=== PATIENT | female | born 1985 | race Caucasian/White ===

== ENCOUNTER 2016-08-18 17:22 | Emergency (ER) | payer SELFPAY ==
[2016-08-18 19:40] VITALS: BP 134/85
--- NOTE | 2016-08-18 19:53 | UC ---
Dizzy HPI HPI Summary: patient has hx of anxiety, currently not taking any medication for it. she is followed by mental health clinic and has an appointment tomorrow. last night she didnt feel right, thought she was too anxious so she took a bath, when she got out she was dizzy. today dizzyness continues and she is anxious something is wrong. she did start her menses today. - History Of Current Complaint Chief Complaint: UCDizziness Stated Complaint: DIZZYNESS Time Seen by Provider: 08/18/16 19:39 Hx Obtained From: Patient Hx Last Menstrual Period: TODAY ONSET ?: No Onset/Duration: Sudden Onset, Lasting Days Timing: Hours Severity Initially: Mild Severity Currently: Mild Pain Intensity: 0 Pain Scale Used: 0-10 Numeric Character: Dizzy Aggravating Factor(s): Nothing Alleviating Factor(s): Nothing Associated Signs And Symptoms: Positive: Palpitations - Risk Factors Cardiac Risk Factors: Negative CVA Risk Factor: Negative - Allergies/Home Medications Allergies/Adverse Reactions: Allergies Allergy/AdvReac Type Severity Reaction Status Date / Time seasonal Allergy Congestion Uncoded 08/18/16 19:28 Home Medications: Home Medications NK [No Home Medications Reported] 08/18/16 [History Confirmed 08/18/16] PMH/Surg Hx/FS Hx/Imm Hx Previously Healthy: Yes Endocrine History Of: Reports: Thyroid Disease - hypo Denies: Diabetes, Hyperthyroidism, Hypothyroidism, Dyslipidemia Cardiovascular History Of: Denies: Cardiac Disorders, Hypertension, Pacemaker/ICD, Myocardial Infarction , Congestive Heart Failure, Atrial Fibrillation, Deep Vein Thrombosis, Bleeding Disorders Respiratory History Of: Denies: COPD, Asthma, Bronchitis, Pneumonia, Pulmonary Embolism GI/ History Of: Denies: Gastroesophageal Reflux, Ulcer, Gastrointestinal Bleed, Gall Bladder Disease, Kidney Stones, Diverticulitis, Renal Disease, Urosepsis Neurological History Of: Denies: TIA, CVA, Dementia, Seizures, Migraine Psychological History Of: Reports: Anxiety, Depression, Bipolar Disorder Denies: Schizophrenia, Post Traumatic Stress Disorder Cancer History Of: Denies: Lung Cancer, Colorectal Cancer, Breast Cancer, Prostate Cancer, Cervical Cancer Other History Of: Negative For: HIV, Hepatitis B, Hepatitis C, Anticoagulant Therapy - Surgical History Surgical History: None - Family History Known Family History: Positive: None Negative: Cardiac Disease, Hypertension, Diabetes - Social History Alcohol Use: None Substance Use Type: None Smoking Status (MU): Never Smoked Tobacco Have You Smoked in the Last Year: No Review of Systems Constitutional: Negative Skin: Negative Eyes: Negative ENT: Negative Respiratory: Negative Cardiovascular: Palpitations Gastrointestinal: Negative Genitourinary: Negative Motor: Negative Neurovascular: Negative Musculoskeletal: Negative Psychological: Anxious All Other Systems Reviewed And Are Negative: Yes Physical Exam Triage Information Reviewed: Yes Appearance: Well-Appearing, No Pain Distress, Well-Nourished, Other: - does appear worried Vital Signs: Initial Vital Signs Temp 98 F 08/18/16 19:28 Pulse 80 08/18/16 19:28 Resp 20 08/18/16 19:28 BP 134/85 08/18/16 19:28 Pulse Ox 100 08/18/16 19:28 Vital Signs Reviewed: Yes Eye Exam: Normal Eyes: Positive: Conjunctiva Clear ENT Exam: Normal ENT: Positive: Hearing grossly normal, Pharynx normal, TMs normal Dental Exam: Normal Neck exam: Normal Neck: Positive: Supple, Nontender, No Lymphadenopathy Respiratory Exam: Normal Respiratory: Positive: Chest non-tender, Lungs clear, Normal breath sounds, No respiratory distress Cardiovascular Exam: Normal - s1s2, no murmur, pedal and radial pulses reg. Cardiovascular: Positive: RRR, No Murmur, Pulses Normal Abdominal Exam: Normal Abdomen Description: Positive: Nontender, No Organomegaly, Soft Bowel Sounds: Positive: Present Musculoskeletal Exam: Normal Musculoskeletal: Positive: Strength Intact, ROM Intact, No Edema Neurological Exam: Normal Neurological: Positive: Alert, Muscle Tone Normal Psychological: Positive: Other: - admits to being anxious currently, answers question appropriately Skin Exam: Normal Dizzy Course/Dx - Course Course Of Treatment: hx obtained, exam performed EKG performed NSR, physical exam is benign. talked with patient about atarax for tonight, she is willing to take it and follow up at mental health clinic tomorrow at her scheduled appointment. - Differential Dx/Diagnosis Differential Diagnosis/HQI/PQRI: Anxiety, Vasovagal Reaction Provider Diagnoses: anxiety. dizzy Discharge - Discharge Plan Condition: Stable Disposition: HOME Patient Education Materials: Lightheadedness (ED), Anxiety (ED)
[2016-08-18] MEDS ORDERED: hydrOXYzine HCL TAB* 50 MG PO ONE (19:55)
[2016-08-18] MEDS ORDERED: hydrOXYzine HCL TAB* 25 MG PO ONE (20:01)
== END 2016-08-18 20:12 | disposition home or self-care (01) ==
LOC: UCCORT 17:22
DX: F41.9 Anxiety disorder, unspecified (principal); R42 Dizziness and giddiness
CPT/HCPCS: 93005; 99212; A9270-GY; G0463

== ENCOUNTER 2017-03-15 14:42 | Emergency (ER) | payer OTHER ==
[2017-03-15 15:19] VITALS: BP 124/68
--- NOTE | 2017-03-15 15:21 | UC ---
Complaint Female HPI - HPI Summary HPI Summary: 31 y/o female presents to the urgent care c/o placing a tampon this morning. Now she can't recall if she has remove it earlier or not. She can't find the string. She is very concern. LMP; 02/04/2017.Pt is . She was with mild spotting yesterday, she called her OBGYN and he told her it was normal for spotting at the beginning of can be normal. Pt just wants to make sure she doesn't have any tampon. Pt denies fever, pelvic pain, chest pain, SOB, N/V/D. - History Of Current Complaint Chief Complaint: UCGU Stated Complaint: PERSONAL Time Seen by Provider: 03/15/17 15:21 Hx Obtained From: Patient Hx Last Menstrual Period: 02/04/2017 ?: Yes Onset/Duration: Sudden Onset, Lasting Hours, Still Present Timing: Constant Severity Currently: None Pain Intensity: 0 Pain Scale Used: 0-10 Numeric Character: Not Applicable Aggravating Factor(s): Nothing Alleviating Factor(s): Nothing Associated Signs And Symptoms: Positive: Negative Related Hx: - Risk Factors Ectopic Risk Factor: Negative - Allergies/Home Medications Allergies/Adverse Reactions: Allergies Allergy/AdvReac Type Severity Reaction Status Date / Time seasonal Allergy Congestion Uncoded 03/15/17 15:14 Home Medications: Home Medications Vitamin TAB* 1 tab PO DAILY 03/15/17 [History Confirmed 03/15/17] PMH/Surg Hx/FS Hx/Imm Hx Previously Healthy: Yes Endocrine History: Hyperthyroidism Respiratory History: Asthma Other History Of: Negative For: HIV, Hepatitis B, Hepatitis C, Anticoagulant Therapy - Surgical History Surgical History: None - Family History Known Family History: Positive: None - Pt denies any FMHX Negative: Cardiac Disease, Hypertension, Diabetes - Social History Occupation: Employed Full-time Lives: With Family Alcohol Use: None Substance Use Type: None Smoking Status (MU): Never Smoked Tobacco Have You Smoked in the Last Year: No Review of Systems Constitutional: Negative Skin: Negative Eyes: Negative ENT: Negative Respiratory: Negative Cardiovascular: Negative Gastrointestinal: Negative Genitourinary: Other - Pt thinks she left her tampon inside, but she is not sure Motor: Negative Neurovascular: Negative Musculoskeletal: Negative Neurological: Negative Psychological: Negative All Other Systems Reviewed And Are Negative: Yes Physical Exam Triage Information Reviewed: Yes Appearance: Well-Appearing, No Pain Distress, Well-Nourished, Obese Vital Signs: Initial Vital Signs Temp 98.4 F 03/15/17 15:15 Pulse 105 03/15/17 15:15 Resp 18 03/15/17 15:15 BP 124/68 03/15/17 15:15 Pulse Ox 99 03/15/17 15:15 Vital Signs Reviewed: Yes Eye Exam: Normal Eyes: Positive: Conjunctiva Clear - PERRLA, EOMI ENT Exam: Normal ENT: Positive: Normal ENT inspection, Hearing grossly normal, Pharynx normal, TMs normal Dental Exam: Normal Neck exam: Normal Neck: Positive: Supple, Nontender, No Lymphadenopathy Respiratory Exam: Normal Respiratory: Positive: Chest non-tender, Lungs clear, Normal breath sounds Cardiovascular Exam: Normal Cardiovascular: Positive: RRR, No Murmur, Pulses Normal Abdominal Exam: Normal Abdomen Description: Positive: Nontender, No Organomegaly, Soft. Negative: CVA Tenderness (R), CVA Tenderness (L) Bowel Sounds: Positive: Present, Absent Musculoskeletal Exam: Normal Musculoskeletal: Positive: Strength Intact, ROM Intact, No Edema Neurological Exam: Normal Psychological Exam: Normal Skin Exam: Normal - Genitalia: Nurse Irma assisted me on Pelvic Exam.Inspection reveals normal distribution of pubic hair. Clitoris and labia are w/o lesions. Internal examination with speculum reveals normal vaginal wall , no foreign body or tampon observed. The cervical os is well visualized. No lesions or discharges are noted. Uterus and ovaries are nontender. Complaint Female Dx - Course Course Of Treatment: 31 y/o female presents to the urgent care c/o placing a tampon this morning. Now she can't recall if she has remove it earlier or not. She can't find the string. She is very concern. LMP; 02/04/2017.Pt is . She was with mild spotting yesterday, she called her OBGYN and he told her it was normal for spotting at the beginning of can be normal. Pt just wants to make sure she doesn't have any tampon. Pt denies fever , pelvic pain, chest pain, SOB, N/V/D. Hx obtained. No foreing body found in the vagina. No vaginal bleeding. Pevic exam: WNL. Pt advised that if spotting returns or she develops pelvic pain or fever, she should f/u with her OBGYN or go immediately to the ER for further treatment. Pt understood and agreed and left the clinic ambulating. - Differential Dx/Diagnosis Differential Diagnosis/HQI/PQRI: Cervicitis, , Sexually Transmitted Disease, Other - foreign body Provider Diagnoses: 1-Normal . 2-Examination of possible retained foreign body in the vagina Discharge - Discharge Plan Condition: Stable Disposition: HOME Patient Education Materials: First Trimester Vaginal Bleed (ED) Referrals: Nimco Villeda MD [Primary Care Provider] - 3 Days Additional Instructions: 1- No tampon was seen or vaginal spotting observed . Please f/u with your OBGYN if you develop increase spotting, pelvic pain, or fever for further management
== END 2017-03-15 15:49 | disposition home or self-care (01) ==
LOC: UCCORT 14:42
DX: Z34.91 Encounter for supervision of normal pregnancy, unspecified, first trimester (principal)
CPT/HCPCS: 99212; G0463

== ENCOUNTER 2017-03-26 12:17 | Emergency (ER) | payer OTHER ==
[2017-03-26 13:00] VITALS: BP 116/72
--- NOTE | 2017-03-26 13:03 | UC ---
UC General HPI - HPI Summary HPI Summary: nausea for about a week. she is 7 weeks with and she has had hyperemesis requiring iv hydration wth the past pregnancies. she denies pain, fever, bleeding, diarrhea. No prior abd surgeries. - History of Current Complaint Chief Complaint: UCGI Stated Complaint: NAUSEA Time Seen by Provider: 03/26/17 12:53 Hx Obtained From: Patient Hx Last Menstrual Period: 02/04/2017 Onset/Duration: Gradual Onset Timing: Constant Onset Severity: Mild Current Severity: Mild Associated Signs & Symptoms: Positive: Nausea. Negative: Fever, Hematemesis, Melena - Allergy/Home Medications Allergies/Adverse Reactions: Allergies Allergy/AdvReac Type Severity Reaction Status Date / Time seasonal Allergy Congestion Uncoded 03/26/17 12:55 PMH/Surg Hx/FS Hx/Imm Hx Previously Healthy: Yes Other History Of: Negative For: HIV, Hepatitis B, Hepatitis C, Anticoagulant Therapy - Surgical History Surgical History: None - Family History Known Family History: Positive: None - Pt denies any FMHX Negative: Cardiac Disease, Hypertension, Diabetes - Social History Lives: With Family Alcohol Use: None Substance Use Type: None Smoking Status (MU): Never Smoked Tobacco Have You Smoked in the Last Year: No Review of Systems Gastrointestinal: Nausea All Other Systems Reviewed And Are Negative: Yes Physical Exam Triage Information Reviewed: Yes Appearance: Well-Appearing, No Pain Distress, Well-Nourished Vital Signs Reviewed: Yes Eye Exam: Normal ENT Exam: Normal Neck exam: Normal Respiratory Exam: Normal Cardiovascular Exam: Normal Abdominal Exam: Normal Musculoskeletal Exam: Normal Neurological Exam: Normal Psychological Exam: Normal Skin Exam: Normal Course/Dx - Differential Dx - Multi-Symptom Provider Diagnoses: nausea during Discharge - Discharge Plan Condition: Good Disposition: HOME Prescriptions: Metoclopramide TAB* [Reglan TAB*] 10 mg PO Q8H #30 tab Patient Education Materials: Hyperemesis Gravidarum (ED) Referrals: Nimco Villeda MD [Primary Care Provider] - If Needed
== END 2017-03-26 13:11 | disposition home or self-care (01) ==
LOC: UCCORT 12:17
DX: O21.0 Mild hyperemesis gravidarum (principal); Z3A.01 Less than 8 weeks gestation of pregnancy
CPT/HCPCS: 99212; G0463

== ENCOUNTER 2017-06-08 18:17 | Emergency (ER) | payer OTHER ==
--- NOTE | 2017-06-08 18:21 | UC ---
Cardiac HPI - HPI Summary HPI Summary: 32 YEAR OLD FEMALE PRESENTS WITH LEFT ANTERIOR SUB STERNAL. - History of Current Complaint Stated Complaint: CHEST PAIN Time Seen by Provider: 06/08/17 18:21 Hx Obtained From: Patient Hx Last Menstrual Period: 02/04/2017 Onset/Duration: Sudden Onset Initial Severity: Moderate Current Severity: Moderate Chest Pain Location: Upper Sternal, Left Anterior - Allergy/Home Medications Allergies/Adverse Reactions: Allergies Allergy/AdvReac Type Severity Reaction Status Date / Time seasonal Allergy Congestion Uncoded 06/08/17 18:35 Home Medications: Home Medications NK [No Home Medications Reported] 06/08/17 [History Confirmed 06/08/17] PMH/Surg Hx/FS Hx/Imm Hx Previously Healthy: Yes Other History Of: Negative For: HIV, Hepatitis B, Hepatitis C, Anticoagulant Therapy - Surgical History Surgical History: None - Family History Known Family History: Positive: None - Pt denies any FMHX Negative: Cardiac Disease, Hypertension, Diabetes - Social History Alcohol Use: None Substance Use Type: None Smoking Status (MU): Never Smoked Tobacco Have You Smoked in the Last Year: No Household Exposure Type: Cigarettes - Immunization History Most Recent Influenza Vaccination: NONE 2016 Review of Systems Constitutional: Negative Skin: Negative Eyes: Negative ENT: Negative Respiratory: Negative Cardiovascular: Chest Pain Gastrointestinal: Negative Genitourinary: Negative Motor: Negative Neurovascular: Negative Musculoskeletal: Negative Neurological: Negative Psychological: Negative All Other Systems Reviewed And Are Negative: Yes Physical Exam Triage Information Reviewed: Yes Vital Signs Reviewed: Yes Eye Exam: Normal ENT Exam: Normal Dental Exam: Normal Neck exam: Normal Neck: Positive: 1 Respiratory Exam: Normal Cardiovascular Exam: Normal Abdominal Exam: Normal Musculoskeletal Exam: Normal Neurological Exam: Normal Psychological Exam: Normal Skin Exam: Normal - Clinical Impression Provider Diagnoses: CHEST PAIN Discharge - Discharge Plan Condition: Stable Disposition: OTHER Discharge Disposition Comment: PATIENT SUGGESTED TO GO TO THE ER. Patient Education Materials: Chest Pain (ED) Referrals: TEN Smith [Primary Care Provider] - Additional Instructions: patient suggested to go to the er.
[2017-06-08] MEDS ORDERED: Aspirin Low Dose CHEW TAB* 81 MG PO ONE (18:29)
[2017-06-08 18:36] VITALS: BP 128/71
== END 2017-06-08 19:00 ==
LOC: UCCORT 18:17
DX: R07.89 Other chest pain (principal); Z77.22 Contact with and (suspected) exposure to environmental tobacco smoke (acute) (chronic)
CPT/HCPCS: 93005; 99212; A9270-GY; G0463

== ENCOUNTER 2017-10-14 17:15 | Emergency (ER) | payer OTHER ==
--- NOTE | 2017-10-14 18:15 | UC ---
[facility] HPI - HPI Summary HPI Summary: Pt presents with right lower tooth pain. She tells me that she has had a fractured tooth in this area for many months and has had mild pain. Over the last 2-3 days has had increased pain in this area. Could not get an appointment with her dentist until next week. Denies fever, chills, sore throat, headache, or dizziness. - History of Current Complaint Stated Complaint: DENTAL Time Seen by Provider: 10/14/17 18:15 Hx Obtained From: Patient Hx Last Menstrual Period: 02/04/2017 Onset/Duration: Gradual Onset Severity: Moderate Pain Intensity: 8 Pain Scale Used: 0-10 Numeric - Allergies/Home Medications Allergies/Adverse Reactions: Allergies Allergy/AdvReac Type Severity Reaction Status Date / Time seasonal Allergy Congestion Uncoded 10/14/17 18:22 Home Medications: Home Medications LORazepam [Ativan 0.5 MG TAB] 0.5 mg PO 10/14/17 [History] hydrOXYzine HCL TAB* [Atarax 25 MG TAB*] 25 mg PO QID PRN 10/14/17 [History Confirmed 10/14/17] PMH/Surg Hx/FS Hx/Imm Hx Previously Healthy: Yes Psychological History: Anxiety Other History Of: Negative For: HIV, Hepatitis B, Hepatitis C, Anticoagulant Therapy - Surgical History Surgical History: None - Family History Known Family History: Positive: None - Pt denies any FMHX Negative: Cardiac Disease, Hypertension, Diabetes - Social History Occupation: Employed Full-time Lives: With Family Alcohol Use: None Substance Use Type: None Smoking Status (MU): Never Smoked Tobacco Have You Smoked in the Last Year: No Household Exposure Type: Cigarettes - Immunization History Most Recent Influenza Vaccination: NONE 2016 Review of Systems Constitutional: Negative Skin: Negative Eyes: Negative ENT: Dental Pain Respiratory: Negative Cardiovascular: Negative Neurovascular: Negative Musculoskeletal: Negative Neurological: Negative Psychological: Negative All Other Systems Reviewed And Are Negative: Yes Physical Exam Triage Information Reviewed: Yes Appearance: Well-Appearing, No Pain Distress, Well-Nourished Vital Signs Reviewed: Yes ENT: Positive: Pharynx normal, Dental tenderness - Tooth 18, Uvula midline. Negative: Pharyngeal erythema, Tonsillar swelling, Tonsillar exudate, Muffled voice Dental: Positive: Percussion Tenderness @ - Tooth 18, Dental Fracture @ - Tooth 18, Abscess @ - Tooth 18. Negative: Cervical Lymphadenopathy, Bleeding Neck: Positive: Supple, Nontender, No Lymphadenopathy Respiratory: Positive: Lungs clear, Normal breath sounds, No respiratory distress, No accessory muscle use Cardiovascular: Positive: RRR, No Murmur, Pulses Normal Neurological: Positive: Alert Psychological: Positive: Age Appropriate Behavior Skin: Negative: rashes, significant lesion(s) Dental Complaint Course/Dx - Course Course Of Treatment: Tooth 18 abscess - Clindamycin - Differential Dx/Diagnosis Provider Diagnoses: Dental abscess Discharge - Sign-Out/Discharge Documenting (check all that apply): Discharge - Discharge Plan Condition: Stable Disposition: HOME Prescriptions: Clindamycin Cap(NF) [Clindamycin Cap 300 mg Cap(NF)] 300 mg PO TID #21 cap Patient Education Materials: Dental Abscess (ED) Referrals: TEN Smith [Primary Care Provider] - Additional Instructions: If you develop a fever, shortness of breath, chest pain, new or worsening symptoms - please call your PCP or go to the ED. - Billing Disposition and Condition Condition: STABLE Disposition: HOME
[2017-10-14 18:22] VITALS: BP 130/85
== END 2017-10-14 18:25 | disposition home or self-care (01) ==
LOC: UCCORT 17:15
DX: K04.7 Periapical abscess without sinus (principal); F41.9 Anxiety disorder, unspecified
CPT/HCPCS: 99212; G0463

== ENCOUNTER 2017-10-26 09:18 | Emergency (ER) | payer OTHER ==
[2017-10-26 09:44] VITALS: BP 120/77
--- NOTE | 2017-10-26 09:56 | UC ---
Throat Pain/Nasal Mic HPI - HPI Summary HPI Summary: Patient to urgent care this morning with chief complaint of sore throat and swelling on the right side of her neck. No fevers chills cough nausea vomiting. Does have a sore tooth on the right lower jaw. Reports no illness exposures [id number] - History of Current Complaint Chief Complaint: UCGeneralIllness Stated Complaint: SORE THROAT Time Seen by Provider: 10/26/17 09:49 Hx Obtained From: Patient Hx Last Menstrual Period: 10/09/17 ?: No Onset/Duration: Sudden Onset - Right, Lasting Days - 1, Still Present Severity: Moderate Pain Intensity: 6 Pain Scale Used: 0-10 Numeric Cough: None Associated Signs & Symptoms: Positive: Negative - Allergies/Home Medications Allergies/Adverse Reactions: Allergies Allergy/AdvReac Type Severity Reaction Status Date / Time seasonal Allergy Congestion Uncoded 10/26/17 09:45 PMH/Surg Hx/FS Hx/Imm Hx Psychological History: Anxiety Other History Of: Negative For: HIV, Hepatitis B, Hepatitis C, Anticoagulant Therapy - Surgical History Surgical History: None - Family History Known Family History: Positive: None - Pt denies any FMHX Negative: Cardiac Disease, Hypertension, Diabetes - Social History Occupation: Works From/At Home Lives: With Family Alcohol Use: None Substance Use Type: None Smoking Status (MU): Never Smoked Tobacco Have You Smoked in the Last Year: No Household Exposure Type: Cigarettes - Immunization History Most Recent Influenza Vaccination: NONE 2016 Review of Systems Constitutional: Negative Skin: Negative Eyes: Negative ENT: Negative - lower 3rd molar, Dental Pain, Sore Throat, Other - right side of neck Respiratory: Negative Cardiovascular: Negative Gastrointestinal: Negative Genitourinary: Negative Motor: Negative Neurovascular: Negative Musculoskeletal: Negative Neurological: Negative Psychological: Negative Is Patient Immunocompromised?: No All Other Systems Reviewed And Are Negative: Yes Physical Exam Triage Information Reviewed: Yes Appearance: Well-Appearing, No Pain Distress, Well-Nourished Vital Signs: Initial Vital Signs Temp 98.0 F 10/26/17 09:41 Pulse 83 10/26/17 09:41 Resp 16 10/26/17 09:41 BP 120/77 10/26/17 09:41 Pulse Ox 98 10/26/17 09:41 Vital Signs Reviewed: Yes Eye Exam: Normal Eyes: Positive: Conjunctiva Clear ENT Exam: Normal ENT: Positive: Normal ENT inspection, Hearing grossly normal, Pharyngeal erythema, TMs normal, Uvula midline. Negative: Nasal congestion, Nasal drainage , Tonsillar swelling, Tonsillar exudate, Trismus, Muffled voice, Hoarse voice, Sinus tenderness Neck exam: Normal Neck: Positive: Supple, Nontender, No Lymphadenopathy Respiratory Exam: Normal Respiratory: Positive: Chest non-tender, Lungs clear, Normal breath sounds, No respiratory distress, No accessory muscle use Cardiovascular Exam: Normal Cardiovascular: Positive: RRR, No Murmur, Pulses Normal, Brisk Capillary Refill Musculoskeletal Exam: Normal Musculoskeletal: Positive: Strength Intact, ROM Intact, No Edema Neurological Exam: Normal Neurological: Positive: Alert, Muscle Tone Normal Psychological Exam: Normal Skin Exam: Normal Diagnostics - Laboratory Diagnostic Studies Completed/Ordered: RST (-) Throat Pain/Nasal Course/Dx - Course Assessment/Plan: Follow up with dentist KAM[facility]. Amoxicillin for infection hydrocodone and ibuprofen for pain. Can use topical [id number] pain relief agents - Differential Dx/Diagnosis Provider Diagnoses: Dental infection right lower jaw third molar Discharge - Sign-Out/Discharge Documenting (check all that apply): Discharge - Discharge Plan Condition: Stable Disposition: HOME Prescriptions: Amoxicillin PO (*) [Amoxicillin 500 MG CAP*] 500 mg PO TID #30 cap Hydrocodone/Acetaminophen [Hydrocodone-Acetamin 5-325 mg] 1 each PO Q6H PRN #16 tablet MDD 4 PRN Reason: Pain Scale 6-10 Patient Education Materials: Dental Abscess (ED) Referrals: TEN Smith [Primary Care Provider] - Additional Instructions: Call Jordan thomson until this morning for an appointment as soon as possible. - Billing Disposition and Condition Condition: STABLE Disposition: HOME
== END 2017-10-26 10:16 | disposition home or self-care (01) ==
LOC: UCCORT 09:18
DX: K04.7 Periapical abscess without sinus (principal)
CPT/HCPCS: 87651; 99212; G0463

== ENCOUNTER 2017-10-31 14:01 | Emergency (ER) | payer OTHER ==
[2017-10-31 14:31] VITALS: BP 129/68
--- NOTE | 2017-10-31 14:50 | UC ---
Dental HPI - HPI Summary HPI Summary: pt states she was seen last week and started on amoxicillin for a dental infection. she has an appointment with [facility] tomorrow; however, the current antibiotic isn't working and the swelling is worse. has pain to R lower back teeth and swollen gland in neck as well. no sore throat, uri. - History of Current Complaint Chief Complaint: UCDentalProblem Stated Complaint: ORAL COMPLAINT Time Seen by Provider: 10/31/17 14:26 Hx Obtained From: Patient Hx Last Menstrual Period: 10/10/17 Onset/Duration: Gradual Onset Pain Intensity: 7 Aggravating Factor(s): Chewing Alleviating Factor(s): Nothing - Allergies/Home Medications Allergies/Adverse Reactions: Allergies Allergy/AdvReac Type Severity Reaction Status Date / Time seasonal Allergy Congestion Uncoded 10/31/17 14:31 PMH/Surg Hx/FS Hx/Imm Hx Psychological History: Anxiety Other History Of: Negative For: HIV, Hepatitis B, Hepatitis C, Anticoagulant Therapy - Surgical History Surgical History: None - Family History Known Family History: Positive: None - Pt denies any FMHX Negative: Cardiac Disease, Hypertension, Diabetes - Social History Occupation: Employed Full-time Lives: With Family Alcohol Use: None Substance Use Type: None Smoking Status (MU): Never Smoked Tobacco Have You Smoked in the Last Year: No Household Exposure Type: Cigarettes - Immunization History Most Recent Influenza Vaccination: NONE 2017 Vaccination Up to Date: Yes Review of Systems Constitutional: Negative Skin: Negative Eyes: Negative ENT: Negative Respiratory: Negative Cardiovascular: Negative Gastrointestinal: Negative Genitourinary: Negative Motor: Negative Neurovascular: Negative Musculoskeletal: Negative Neurological: Negative Psychological: Negative Is Patient Immunocompromised?: No All Other Systems Reviewed And Are Negative: Yes Physical Exam Triage Information Reviewed: Yes Appearance: Well-Appearing Vital Signs: Initial Vital Signs Temp 98.7 F 10/31/17 14:27 Pulse 91 10/31/17 14:27 Resp 20 10/31/17 14:27 BP 129/68 10/31/17 14:27 Pulse Ox 100 10/31/17 14:27 Vital Signs Reviewed: Yes Eyes: Positive: Conjunctiva Clear ENT: Positive: Pharynx normal, TMs normal. Negative: Nasal congestion, Nasal drainage Dental: Positive: Percussion Tenderness @ - R lower 2 back teeth, Gross Decay/ Caries @ - R lower back teeth, Other: - Gum by R lower back teeth with tendernss and mild swelling but not fluctuant. The parotid and submandibular glands have no swelling or tenderness. Neck: Positive: Supple, Tenderness @ - R upper-anterior cervical node, Enlarged Nodes @ - R upper anterior cervical node Respiratory: Positive: Lungs clear, Normal breath sounds Cardiovascular: Positive: RRR, No Murmur Abdomen Description: Positive: Nontender, No Organomegaly, Soft Bowel Sounds: Positive: Present Musculoskeletal: Positive: ROM Intact Neurological: Positive: Alert Psychological: Positive: Age Appropriate Behavior Skin Exam: Normal Dental Complaint Course/Dx - Course Course Of Treatment: no signs of salivary gland pathology. no ludwigs angina. exam c/w dental pain and infected gum. pt advised of risk for c-diff colitis from repeat antibiotics and broader class. she is willing to take the risk thus will d/c the amoxicllin and start clindamycin. pt agrees to start a probiotic as well. - Differential Dx/Diagnosis Provider Diagnoses: Infection R lower gum. Pain/decay R lower posterior molars. Discharge - Sign-Out/Discharge Documenting (check all that apply): Discharge/Admit/Transfer - Discharge Plan Condition: Stable Disposition: HOME Prescriptions: Clindamycin Cap(NF) [Clindamycin Cap 300 mg Cap(NF)] 300 mg PO TID #30 cap Naproxen [Naprosyn 500 mg tab] 500 mg PO BID #10 tablet Patient Education Materials: Dental Abscess (ED), Toothache (ED) Referrals: TEN Smith [Primary Care Provider] - If Needed Additional Instructions: FOLLOW UP [facility] TOMORROW SCHEDULED. STOP THE AMOXICILLIN. START A PROBIOTIC SUCH A CULTURELLE DAILY WHILE ON ANTIBIOTICS - Billing Disposition and Condition Condition: STABLE Disposition: HOME
== END 2017-10-31 15:07 | disposition home or self-care (01) ==
LOC: UCCORT 14:01
DX: K05.10 Chronic gingivitis, plaque induced (principal); K02.9 Dental caries, unspecified
CPT/HCPCS: 99212; G0463

== ENCOUNTER 2018-02-19 09:53 | Emergency (ER) | payer OTHER ==
[2018-02-19 10:24] VITALS: BP 139/81
--- NOTE | 2018-02-19 10:49 | UC ---
General HPI - HPI Summary HPI Summary: 1. cough with congestion and wheezing for a week. has a hx of asthma. chest sore with cough. no leg swelling or calf pain. no fever. 2. rash L abdomen, spot on neck and L arm. areas itch. - History of Current Complaint Chief Complaint: UCRespiratory Stated Complaint: COUGH, CHEST CONGESTION Time Seen by Provider: 02/19/18 10:42 Hx Obtained From: Patient Hx Last Menstrual Period: 01/31/18 Timing: Constant Pain Intensity: 0 Associated Signs & Symptoms: Positive: Cough, Wheezing. Negative: Edema, Fever , SOB - Allergy/Home Medications Allergies/Adverse Reactions: Allergies Allergy/AdvReac Type Severity Reaction Status Date / Time seasonal Allergy Congestion Uncoded 02/19/18 10:19 PMH/Surg Hx/FS Hx/Imm Hx Respiratory History: Asthma Psychological History: Anxiety Other History Of: Negative For: HIV, Hepatitis B, Hepatitis C, Anticoagulant Therapy - Surgical History Surgical History: None - Family History Known Family History: Positive: Diabetes Negative: Cardiac Disease, Hypertension - Social History Lives: With Family Alcohol Use: None Substance Use Type: Prescribed Smoking Status (MU): Never Smoked Tobacco Have You Smoked in the Last Year: No Household Exposure Type: Cigarettes - Immunization History Most Recent Influenza Vaccination: NONE 2017 Vaccination Up to Date: Yes Review of Systems Constitutional: Negative Skin: Rash Eyes: Negative ENT: Negative Respiratory: Cough Cardiovascular: Negative Gastrointestinal: Negative Genitourinary: Negative Motor: Negative Neurovascular: Negative Musculoskeletal: Negative Neurological: Negative Psychological: Negative Is Patient Immunocompromised?: No All Other Systems Reviewed And Are Negative: Yes Physical Exam Triage Information Reviewed: Yes Appearance: Well-Appearing Vital Signs: Initial Vital Signs Temp 98.4 F 02/19/18 10:20 Pulse 90 02/19/18 10:20 Resp 16 02/19/18 10:20 BP 139/81 02/19/18 10:20 Pulse Ox 99 02/19/18 10:20 Vital Signs Reviewed: Yes Eyes: Positive: Conjunctiva Clear ENT: Positive: Pharynx normal, TMs normal. Negative: Nasal congestion, Nasal drainage Neck: Positive: Supple, Nontender, No Lymphadenopathy Respiratory: Positive: Lungs clear, No respiratory distress, Decreased breath sounds - mild, Other: - bronchospastic cough. Cardiovascular: Positive: RRR, No Murmur Abdomen Description: Positive: Nontender, No Organomegaly, Soft Bowel Sounds: Positive: Present Musculoskeletal: Positive: ROM Intact, No Edema, Other: - no calf cords or tenderness. Neurological: Positive: Alert Psychological: Positive: Age Appropriate Behavior Skin Exam: Normal, Other - red raised wheels 4 on L abdomen and one side of neck and L arm. no blistering, not petechial and they do tawny. Course/Dx - Course Course Of Treatment: no concern for bed bugs. rash c/w hives. did use different soap. asthma flare thus will tx albuterol mdi, declined neb tx here. will tx po prednisone as well which will help the hives. no concern for PE. no cp, hypoxemia/tachycardia, leg swelling or calf pain - Differential Dx - Multi-Symptom Provider Diagnoses: Athma flare. hives Discharge - Sign-Out/Discharge Documenting (check all that apply): Patient Departure - Discharge Plan Condition: Stable Disposition: HOME Prescriptions: Albuterol HFA INHALER* [Ventolin HFA Inhaler*] 2 puff INH Q6H #1 mdi predniSONE TAB* [Deltasone 20 MG TAB*] 40 mg PO DAILY #10 tab Patient Education Materials: Asthma (ED), Urticaria (ED) Referrals: TEN Smith [Primary Care Provider] - 5 Days - Billing Disposition and Condition Condition: STABLE Disposition: Home
== END 2018-02-19 10:58 | disposition home or self-care (01) ==
LOC: UCCORT 09:53
DX: J45.909 Unspecified asthma, uncomplicated (principal); L50.9 Urticaria, unspecified
CPT/HCPCS: 99212; G0463

== ENCOUNTER 2018-10-06 18:30 | Emergency (ER) | payer OTHER ==
--- OUTSIDE RECORDS SUMMARY | 2018-10-06 18:56 | XMS REPORT | Continuity of Care Document ---
:1985 External Reference #:[id number] Author Name Greg Christensen MD Address [address] [place] [address] Care Team Providers Name Role Phone Veronica Beard NP Care Team Information Adapted Physical Education Aide Unavailable Veronica Beard NP Primary Care Physician Unavailable Payers Date Identification Numbers Payment Provider Subscriber Policy Number: [id number] [place] Medicaid Sarahi Oconnor PayID: [id number] [address] [address] [place] [address] Advance Directives Description No Information Available Problems Description No Information Family History Date Family Member(s) Observation Comments Father 51 Mother 51 Social History Type Date Description Comments Sex Unknown Marital Status Single Lives With Male Partner Lives With Children Diet Patient follows no dietary restrictions Occupation Unemployed Abuse No history of abuse Tobacco Use Start: Unknown Never Smoked Cigarettes ETOH Use Drinks Alcoholic Beverages Rarely Recreational Drug Use Denies Drug Use Tobacco Use Start: Unknown Patient has never smoked Smoking Status Reviewed: 09/25/18 Patient has never smoked Enjoy Exercising Does not enjoy exercising Tattoo/Piercing Tattoo shoulder Tattoo/Piercing Pierced ears Currently Active Patient is currently sexually active Contraceptive Methods None Age 1st [place] 19 Years Old # Partners in a Lifetime 4 # Partners in a Lifetime Has been with current partner for 1 year Allergies, Adverse Reactions, Alerts Description No Known Drug Allergies Medications Medication Date Status Form Strength Qnty SIG Indications Ordering Provider Acetazolamide ER 06/26/ Active Caps ER 500mg 60caps 1 tablet H46.03 Fermin, 2018 12HR by mouth MD Greg 2 times daily Hydroxyzine HCL 00/00/ Active Tablets 25mg Take One Unknown 0000 Tablet By Mouth Three Times A Day as Needed Diclofenac Sodium 04/11/ Hx Tablets ER 100mg 30tabs 1 by Janeth ER 2018 - 24HR mouth Jumana, 06/21/ every MD 2017 day with food Nortriptyline HCL 00/00/ Hx Capsules 10mg Unknown - 2016 Diazepam /00/ Hx Tablets 10mg Unknown - 2016 Propranolol HCL 00/ Hx Tablets 10mg Unknown - 2016 Magnesium Oxide / Hx Tablets 400(241.3M Unknown 0000 - g) mg 2016 Cyclobenzaprine 00/ Hx Tablets 10mg Unknown HCL - 2016 Ibuprofen / Hx Tablets 400mg Unknown - 2016 Metoclopramide / Hx Tablets 10mg Unknown HCL - 2016 Fluoxetine HCL 00/ Hx Capsules 10mg Take One Unknown 0000 - Capsule 11/12/ By Mouth 2016 Every Day Synthroid / Hx Tablets 50mcg [place] 0000 - , 11/12/ Carol Rinaldi M.D. Tramadol HCL 00/ Hx Tablets 50mg 1 tablet Unknown 0000 - every 04/11/ 2018 day Verapamil HCL 00/ Hx Tablets 40mg 1 po bid Unknown 0000 - 2017 Immunizations Description No Information Available Vital Signs Date Vital Result Comment 04/11/2018 10:33am BP Systolic Sitting Right Arm 132 mmHg BP Diastolic Sitting Right Arm 92 mmHg Body Temperature 97.7 F Heart Rate 97 /min Respiratory Rate 18 /min Weight 164.00 lb O2 % BldC Oximetry 97 % 03/18/2011 5:49pm BP Systolic Sitting Left Arm 117 mmHg BP Diastolic Sitting Left Arm 77 mmHg Heart Rate 84 /min Results Description No Information Available Procedures Date Code Description Status 09/25/2018 20244 Eye Exam Est Patient Comprehensive Completed 07/10/2018 73456 Visual Field Exam Extended, Unilateral Or Bilateral Completed 07/10/2018 84605 Eye Exam Est Patient Comprehensive Completed 06/26/2018 52922 Eye Exam Est Patient Comprehensive Completed 06/22/2018 34426 Eye Exam New Patient Comprehensive Completed 11/12/2016 97093 Fundus Photography W/Interpretation & Report Completed 11/12/2016 90781 Gonioscopy Completed 11/12/2016 13851 Eye Exam New Patient Comprehensive Completed 11/12/2016 38478 Ophthalmic Ultrasound, Corneal Pachymetry, Completed Unilateral/Bilateral 02/13/2015 53023 EKG Interpretation And Report Only Completed 02/14/2012 64883 Anesthesia,Neuraxial Labor Completed 05/01/2009 22420 Vaginal Delivery Only Completed Encounters Type Date Location Provider Dx Diagnosis Office Visit 04/11/2018 Orthopaedic Office [place] Nguyễn 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 F32.9 Major depressive disorder, single episode, unspecified Office Visit 03/18/2011 5:10p provider network mgr Office Navneet Yap, 626.2 Menstruation M.D. Excessive Or Frequent Plan of Treatment Future Appointment(s):01/01/2019 9:45 am - Greg Christensen MD at [email or web address]/ 13/2018 - Greg Christensen MDH46.03 Optic papillitis, bilateral
[2018-10-06 19:00] VITALS: BP 140/81
--- NOTE | 2018-10-06 19:24 | UC ---
Complaint Female HPI - HPI Summary HPI Summary: Pt presents with c/o low back and pelvic discomfort X 1 week. Pt thought she had a UTI last week and began taking amoxicillin she had at home for a dental procedure. Pt completed ~10- 14 amoxicillin tablets prior to clinic visit today. Pt now c/o continued low back and pelvic ache. Denies risk for STD - History Of Current Complaint Chief Complaint: UCGU Stated Complaint: URINARY Time Seen by Provider: 10/06/18 19:06 Hx Obtained From: Patient Hx Last Menstrual Period: 09/18/18 ?: No Onset/Duration: Sudden Onset, Lasting Days, Still Present Timing: Constant Severity Initially: Mild Severity Currently: Mild Pain Intensity: 8 Character: Dull Aggravating Factor(s): Nothing Alleviating Factor(s): Nothing Associated Signs And Symptoms: Positive: Back Pain - Risk Factors Ectopic Risk Factor: Negative Ovarian Torsion Risk Factor: Reproductive Age - Allergies/Home Medications Allergies/Adverse Reactions: Allergies Allergy/AdvReac Type Severity Reaction Status Date / Time seasonal Allergy Congestion Uncoded 10/06/18 19:00 Home Medications: Home Medications Butalb/Acetaminophen/Caffeine [Qqnnkz-Uzipncze-Vbxo 50-300-40] 1 each PO DAILY 10/06/18 [History Confirmed 10/06/18] acetaZOLAMIDE TAB* [Diamox Tab*] 500 mg PO BID 10/06/18 [History Confirmed 10/06] PMH/Surg Hx/FS Hx/Imm Hx Previously Healthy: Yes Other History Of: Negative For: HIV, Hepatitis B, Hepatitis C, Anticoagulant Therapy - Surgical History Surgical History: None - Family History Known Family History: Positive: None - Pt denies any FMHX, Diabetes Negative: Cardiac Disease, Hypertension - Social History Occupation: Employed Full-time Lives: With Family Alcohol Use: None Substance Use Type: None Smoking Status (MU): Never Smoked Tobacco Have You Smoked in the Last Year: No Household Exposure Type: Cigarettes - Immunization History Most Recent Influenza Vaccination: NONE 2017 Vaccination Up to Date: Yes Review of Systems All Other Systems Reviewed And Are Negative: Yes Constitutional: Positive: Negative Skin: Positive: Negative Eyes: Positive: Negative ENT: Positive: Negative Respiratory: Positive: Negative Cardiovascular: Positive: Negative Gastrointestinal: Positive: Negative Genitourinary: Positive: Negative Motor: Positive: Negative Neurovascular: Positive: Negative Musculoskeletal: Positive: Negative Neurological: Positive: Negative Psychological: Positive: Negative Is Patient Immunocompromised?: No Physical Exam Triage Information Reviewed: Yes Appearance: Well-Appearing Vital Signs: Initial Vital Signs Temp 98.6 F 10/06/18 18:56 Pulse 131 10/06/18 18:56 Resp 16 10/06/18 18:56 BP 140/81 10/06/18 18:56 Pulse Ox 100 10/06/18 18:56 Vital Signs Reviewed: Yes Eye Exam: Normal ENT Exam: Normal Dental Exam: Normal Neck exam: Normal Respiratory Exam: Normal Cardiovascular Exam: Normal Abdomen Description: Positive: CVA Tenderness (R), CVA Tenderness (L) Musculoskeletal Exam: Normal Neurological Exam: Normal Psychological Exam: Normal Skin Exam: Normal Complaint Female Dx - Differential Dx/Diagnosis Differential Diagnosis/HQI/PQRI: Urinary Tract Infection Provider Diagnosis: Dysuria, Low back ache Discharge - Sign-Out/Discharge Documenting (check all that apply): Patient Departure All imaging exams completed and their final reports reviewed: No Studies - Discharge Plan Condition: Stable Disposition: HOME Prescriptions: Nitrofurantoin Monohyd/M-Cryst [Macrobid 100 mg Capsule] 100 mg PO Q12H #14 cap Patient Education Materials: Dysuria (ED) Referrals: [facility] [Outside] - If Needed No Primary Care Phys,NOPCP [Primary Care Provider] - - Billing Disposition and Condition Condition: STABLE Disposition: Home - Attestation Statements Provider Attestation: I was available for consult. This patient was seen by the [facility]. The patient was not presented to, seen by, or examined by me. -Kacey
== END 2018-10-06 19:31 | disposition home or self-care (01) ==
LOC: UCCORT 18:30
DX: M54.5 Low back pain (principal); R30.0 Dysuria; R10.2 Pelvic and perineal pain; Z91.09 Other allergy status, other than to drugs and biological substances
CPT/HCPCS: 81003; 87086; 99212; G0463

== ENCOUNTER 2018-11-09 14:42 | Emergency (ER) | payer OTHER ==
--- NOTE | 2018-11-09 15:22 | UC ---
Dental HPI - HPI Summary HPI Summary: Pt with progressive pain # 14 tooth h/o same. Pt called dentist -recommend come to for eval has appt next Thur no analgsia taken. no fever, chills no facial swelling. no intraroral edema. No drooling. mild ear pain meds reviewed not - History of Current Complaint Stated Complaint: DENTAL PAIN Time Seen by Provider: 11/09/18 15:19 Hx Obtained From: Patient Hx Last Menstrual Period: 09/18/18 ?: No Onset/Duration: Gradual Onset - Allergies/Home Medications Allergies/Adverse Reactions: Allergies Allergy/AdvReac Type Severity Reaction Status Date / Time seasonal Allergy Congestion Uncoded 11/09/18 15:25 Home Medications: Home Medications Cyclobenzaprine TAB* [Flexeril 10 MG TAB*] 10 mg PO BID PRN 11/09/18 [History Confirmed 11/09/18] PMH/Surg Hx/FS Hx/Imm Hx Previously Healthy: Yes Other History Of: Negative For: HIV, Hepatitis B, Hepatitis C, Anticoagulant Therapy - Surgical History Surgical History: None - Family History Known Family History: Positive: Diabetes, Non-Contributory Negative: Cardiac Disease, Hypertension - Social History Occupation: Employed Full-time Lives: With Family Alcohol Use: None Substance Use Type: None Smoking Status (MU): Never Smoked Tobacco Have You Smoked in the Last Year: No Household Exposure Type: Cigarettes - Immunization History Most Recent Influenza Vaccination: NONE 2016 Vaccination Up to Date: Yes Review of Systems All Other Systems Reviewed And Are Negative: Yes Constitutional: Positive: Negative Skin: Positive: Negative ENT: Positive: Dental Pain, Ear Ache Physical Exam - Summary Physical Exam Summary: Vital Signs Reviewed: Yes A+Ox3, mild discomfort Eyes: Conjunctiva Clear, VENITA. EOM intact and full ENT: Hearing grossly normal TM x 2 clear, turbinates wnl, + TTP #14 with direct palp, erythema at gumline buccal side, no fluctuance, no discharge, no mastoid pain mmoist, uvula midline, no exudate, no erythema Neck: Positive: Supple, no LA Respiratory: Positive: No respiratory distress, No accessory muscle use + CTA throughout no w/r Cardiovascular: RRR nl s1, s2 no m/r CBT <2 sec abd soft + BS nt/nd no guarding, no distension Musculoskeletal Exam: NGO x 4 without difficulty Strength Intact, ROM Intact Neurological: Positive: Alert, + sensation throughout Psychological: Positive: Normal Response To Family Skin: Positive: no rash, no ecchymosis Triage Information Reviewed: Yes Dental Complaint Course/Dx - Course Course Of Treatment: pt with progressive dental pain no fluctuance + TTP abx swish/spit motrin/apap dental appt next return precautions - Differential Dx/Diagnosis Provider Diagnosis: Pain, dental Discharge - Sign-Out/Discharge Documenting (check all that apply): Patient Departure All imaging exams completed and their final reports reviewed: No Studies - Discharge Plan Condition: Stable Disposition: HOME Prescriptions: Amoxicillin PO (*) [Amoxicillin 875 MG (*)] 875 mg PO BID #20 tab Chlorhexidine MW 0.12% 473ML* [Peridex Mouth Wash 0.12%*] 15 ml SWISH SPIT TID # 1 btl Fluconazole [Diflucan 150 MG (NF)] 150 mg PO ONCE PRN #1 tab PRN Reason: vaginal yeast infection Patient Education Materials: Toothache (ED) Referrals: Alan Staples MD [Primary Care Provider] - Additional Instructions: - Okay to alternate ibuprofen (Advil, Motrin) 600mg and Tylenol 1000mg every 3 hours for pain. Take with food. Do NOT take for more than 4-5 days -Swish and spit with warm salt water 3-4 times a day -Take antibiotics as prescribed until gone -Stay well hydrated - frequent sips of cold fluids will be soothing to your throat (popsicles, jello, ice cream, ice water) - Keep your appointment as scheduled with your dentist next / If you develop swelling inside your mouth, difficulty with chewing or any other concerns it is recommended you go to the emergency department for further management - Billing Disposition and Condition Condition: STABLE Disposition: Home
[2018-11-09 15:24] VITALS: BP 115/76
== END 2018-11-09 16:05 | disposition home or self-care (01) ==
LOC: UCCORT 14:42
DX: K08.89 Other specified disorders of teeth and supporting structures (principal); H92.09 Otalgia, unspecified ear; J30.2 Other seasonal allergic rhinitis
CPT/HCPCS: 99212; G0463